=== PATIENT | male | born 1980 | race Caucasian/White ===

== ENCOUNTER 2022-02-13 21:23 | Emergency (ER) | payer OTHER ==
[2022-02-13 22:17] LABS: ESTIMATED GFR 87 mL/min (>60)
== END 2022-02-14 00:40 | disposition home or self-care (01) ==
LOC: JD.ED 21:23
DX: T40.2X1A Poisoning by other opioids, accidental (unintentional), initial encounter (principal); R07.89 Other chest pain; Z88.8 Allergy status to other drugs, medicaments and biological substances; Z88.0 Allergy status to penicillin
CPT/HCPCS: 36415; 71046; 71046-26; 80053; 84484; 85025; 93005; 99285